=== PATIENT | male | born 1980 | race Caucasian/White ===

== ENCOUNTER 2016-07-15 13:31 | Emergency (ER) | payer BC, OTHER ==
[~2016-07-15] VITALS: Ht 180.3 cm; Wt 96.5 kg
[2016-07-15 13:34] VITALS: Ht 180.3 cm; Wt 96.5 kg
[2016-07-15] MEDS ORDERED: SOD CHLORIDE 0.9% 1,000 ML IV STA (14:15)
[2016-07-15 15:09] LABS: BASOPHILS % 0.1 % (0.0-2.0); CONDITION 1; EOSINOPHILS % 0.2 % (0.0-7.0); HEMATOCRIT 45.3 % (42.0-52.0); HEMOGLOBIN 15.8 g/dl (14.0-18.0); LYMPHOCYTES % 8.4 % (15.0-51.0); MEAN CORPUSCULAR HEMOGLOBIN 31.7 pg (29.0-33.0); MEAN CORPUSCULAR HGB CONC 34.9 g/dl (32.0-37.0); MEAN CORPUSCULAR VOLUME 90.9 fl (82.0-101.0); MEAN PLATELET VOLUME 10.3 fl (7.4-10.4); MONOCYTE # 0.5 10^3/ul (0.3-0.9); NEUTROPHIL # 10.2 10^3/ul (1.6-7.5); NEUTROPHILS % 87.3 % (39.0-77.0); PLATELET COUNT 144 10^3/UL (140-440); RED BLOOD COUNT 4.99 10^6/ul (4.70-6.10); RED CELL DISTRIBUTION WIDTH 12.3 % (11.5-14.5); UNCORRECTED WBC 11.7 10^3/ul (4.8-10.8); WHITE BLOOD COUNT 11.7 10^3/ul (4.8-10.8)
--- NOTE | 2016-07-15 15:09 | RADRPT ---
PROCEDURE: XR Chest. CLINICAL INDICATION: Syncope. TECHNIQUE: Single frontal view. COMPARISON: None. FINDINGS: The lungs are clear. The heart size is normal. There is no pleural effusion. There is no pneumothorax. IMPRESSION: 1. Normal chest radiograph. RPTAT: QQ .Gil Driscoll MD, Date Time Electronically viewed and signed by .Gil Driscoll MD, on 07/15/2016 15:08 .R/
[2016-07-15 15:13] LABS: CHLORIDE 102 mmol/L (97-110); POTASSIUM 4.2 mmol/L (3.5-5.1); SODIUM 142 mmol/L (135-144)
[2016-07-15 15:16] LABS: ANION GAP 17 (8-16); CARBON DIOXIDE 27 mmol/L (21-31); CREATININE 0.86 mg/dl (0.61-1.24)
[2016-07-15 15:17] LABS: BLOOD UREA NITROGEN 14 mg/dl (7-20); CALCIUM 9.4 mg/dl (8.4-10.2); GLUCOSE 94 mg/dl (70-220)
--- NOTE | 2016-07-15 15:19 | RADRPT ---
PROCEDURE: CT Brain without contrast. CLINICAL INDICATION: Dizziness and syncope. TECHNIQUE: A CT of the brain without contrast was performed utilizing axial sections from the skul l base through the vertex. The patient was scanned without intravenous contrast enhancement. Sagitta l and coronal reformatted images were obtained using the data from the axial images. Total exam DLP is 720.23 mGy-cm. CTDIvol is 44.11 mGy. One or more of the following dose reduction techniques we re used: Automated exposure control, adjustment of the mA and/or kV according to patient size, use o f iterative reconstruction technique. COMPARISON: None available FINDINGS: There is normal olmstead-white matter differentiation. The ventricles and cisterns are normal. There is no intracranial hemorrhage or space-occupying lesion. There is no skull fracture or lytic lesion. IMPRESSION: 1. No intracranial hemorrhage. 2. Normal noncontrast CT scan of the brain. RPTAT: QQ .Gil Driscoll MD, MD Date Time Electronically viewed and signed by .Gil Driscoll MD, on 07/15/2016 15:19 .R/
[2016-07-15 15:31] LABS: TROPONIN-I < 0.012 ng/ml (0.00-0.12)
--- NOTE | 2016-07-15 16:02 | ERD ---
ER Documentation Chief Complaint Date/Time DATE: 07/15/16 TIME: 15:54 Chief Complaint SUDDEN SYNCOPE WITH LOC X10+ SECONDS HPI This is a pleasant 35-year-old male who is at lunch with his family. He said he took the kids to the restroom and came back and sat down at the table when he suddenly felt dizzy then he was syncopal for about 30 seconds. The who is here and witnessed this at that his eyes were open but he was not responsive. She said he did not turn blue or pale. She said he continued to breathe but not responding. She says she threw water on him he woke up. Patient said when he woke up he knew he had passed out but was completely asymptomatic. Denies any shortness of breath denies chest pain prior to syncope. Patient had already eaten before this incident. The patient says he exercises at a heart intensity regularly and has not had any chest pain shortness of breath or other symptoms during exercise. He says he has been stressed lately. He says right now he feels back to normal. He denied any headache numbness weakness prior or after the syncopal episode ROS All systems reviewed and are negative except as per history of present illness. Allergies Allergies: Coded Allergies: No Known Allergy (Unverified , 07/15/16) PMhx/Soc Medical and Surgical Hx: pt denies Surgical Hx Hx Miscellaneous Medical Probl: Yes (gastric ulcer) Hx Alcohol Use: No Hx Substance Use: No Hx Tobacco Use: No Smoking Status: Never smoker FmHx Family History: No coronary disease Physical Exam Vitals Vital Signs Date Time Temp Pulse Resp B/P Pulse Ox O2 Delivery O2 Flow Rate FiO2 07/15/16 13:34 98.6 78 18 148/76 100 Physical Exam Const: Well-developed, well-nourished Head: Atraumatic, normocephalic Eyes: Normal Conjunctiva, PERRLA, EOMI, normal sclera, no nystagmus ENT: Normal External Ears, Nose and Mouth, moist mucus membranes. Neck: Full range of motion. No meningismus, no lymphadenopathy. Resp: Clear to auscultation bilaterally, no wheezing, rhonchi, rales Cardio: Regular rate and rhythm, no murmurs, S1 S2 present Abd: Soft, non tender x 4, non distended. Normal bowel sounds, no guarding or rebound, no pulsitile abdominal masses or bruits Skin: No petechiae or rashes, no ecchymosis , no maculopapular rash Back: No midline or flank tenderness Ext: No cyanosis, or edema, FROM x 4, normal inspection, neurovascularly intact x 4 Neur: Awake and alert, STR 5/5 x 4, sensation intact x 4, no focal findings, cerebellum intact Psych: Normal Mood and Affect Result Diagram: 07/15/16 1449 07/15/16 1449 Results 24 hrs Laboratory Tests Test 07/15/16 14:49 Anion Gap 17 Basophils # 0.010^3/ul Basophils % 0.1% Blood Urea Nitrogen 14mg/dl Calcium Level 9.4mg/dl Carbon Dioxide Level 27mmol/L Chloride Level 102mmol/L Creatinine 0.86mg/dl Eosinophils # 0.010^3/ul Eosinophils % 0.2% Glucose Level 94mg/dl Hematocrit 45.3% Hemoglobin 15.8g/dl Lymphocytes # 1.010^3/ul Lymphocytes % 8.4% Mean Corpuscular Hemoglobin 31.7pg Mean Corpuscular Hemoglobin Concent 34.9g/dl Mean Corpuscular Volume 90.9fl Mean Platelet Volume 10.3fl Monocytes # 0.510^3/ul Monocytes % 4.0% Neutrophils # 10.210^3/ul Neutrophils % 87.3% Nucleated Red Blood Cells # 0.010^3/ul Nucleated Red Blood Cells % 0.0/100WBC Platelet Count 32892^3/UL Potassium Level 4.2mmol/L Red Blood Count 4.9910^6/ul Red Cell Distribution Width 12.3% Sodium Level 142mmol/L Troponin I < 0.012ng/ml White Blood Count 11.710^3/ul Current Medications Medications (Trade) Dose Ordered Sig/Td Route PRN Reason Start Time Stop Time Status Last Admin Dose Admin Sodium Chloride (NS) 1,000 ml @ 1,000 mls/hr Q1H STAT IV 07/15/16 14:15 07/15/16 15:14 DC 07/15/16 14:49 Procedures/MDM EKG: Rate/Rhythm: Normal sinus rhythm with a heart rate of 79, inverted T waves inferiorly and laterally QRS, ST, QT: NORMAL NE, QRS, QT] Impression: abNORMAL EKG PROCEDURE: CT Brain without contrast. CLINICAL INDICATION: Dizziness and syncope. TECHNIQUE: A CT of the brain without contrast was performed utilizing axial sections from the skull base through the vertex. The patient was scanned without intravenous contrast enhancement. Sagittal and coronal reformatted images were obtained using the data from the axial images. Total exam DLP is 720.23 mGy-cm. CTDIvol is 44.11 mGy. One or more of the following dose reduction techniques were used: Automated exposure control, adjustment of the mA and/or kV according to patient size, use of iterative reconstruction technique. COMPARISON: None available FINDINGS: There is normal olmstead-white matter differentiation. The ventricles and cisterns are normal. There is no intracranial hemorrhage or space-occupying lesion. There is no skull fracture or lytic lesion. IMPRESSION: 1. No intracranial hemorrhage. 2. Normal noncontrast CT scan of the brain. RPTAT: QQ .Gil rDiscoll MD, Date Time Electronically viewed and signed by .Gil Driscoll MD, on 07/15/2016 15:19 .R/ CC: ZUNILDA FORD DO PROCEDURE: XR Chest. CLINICAL INDICATION: Syncope. TECHNIQUE: Single frontal view. COMPARISON: None. FINDINGS: The lungs are clear. The heart size is normal. There is no pleural effusion. There is no pneumothorax. IMPRESSION: 1. Normal chest radiograph. RPTAT: QQ .Gil Driscoll MD, MD Date Time Electronically viewed and signed by .Gil Driscoll MD, on 07/15/2016 15:08 .R/ CC: ZUNILDA FORD DO Patient had a brief syncopal episode with only preceding symptoms of dizziness. I do not feel the patient was hypoglycemic because he just eaten however he could have had a reactive hypoglycemic episode. He had no chest pain or shortness of breath. He could have had low blood pressure or a brief arrhythmia. Does have some inverted T waves in the inferior and lateral leads on his EKG but no ST segment changes. Blood work looks unremarkable., Orthostatics were not done at discharge is a nurse did not see the note to do one set and he had already received fluids. My suspicion for dehydration is low. Told him to follow-up with his primary care physician as he does have adequate follow-up. Told him not to exercise or exert himself whatsoever. Patient works from home and can be observed. Patient has no neurological deficits to indicate any cerebrovascular accident. Departure Diagnosis: Primary Impression: Syncope Syncope type: unspecified Qualified Code: R55 - Syncope, unspecified syncope type Condition: Stable Patient Instructions: Syncope, Unk Cause Referrals: FLOR MENDOZA (PCP) ZUNILDA FORD DO Jul 15, 2016 16:01
[2016-07-15 16:17] VITALS: BP 113/78; PULSE 77; RESP 18; TEMP 97.8
== END 2016-07-15 16:18 | disposition home or self-care (01) ==
LOC: E/R 13:31
DX: R55 Syncope and collapse (principal)
CPT/HCPCS: 70450; 71010; 80048; 84484; 85025; J7030; 36415; 93005